=== PATIENT | male | born 1950 | race Hispanic/Latino ===

== ENCOUNTER 2017-06-05 06:00 | Day surgery (SDC) | payer OTHER, MEDICARE ==
[2017-06-02 11:30] VITALS: BP 151/81
[2017-06-02 11:54] LABS: BASOPHILS % (AUTO) 1.4 % (0.0-5.0); EOSINOPHILS % (AUTO) 2.7 % (0.0-8.0); HEMATOCRIT 41.3 % (42-54); LYMPHOCYTES % (AUTO) 23.8 % (21.0-51.0); MEAN CORPUSCULAR HEMOGLOBIN 31.8 pg (27.0-33.0); MEAN CORPUSCULAR HGB CONC 33.9 g/dL (32.0-36.0); MEAN CORPUSCULAR VOLUME 93.7 fL (79-99); MONOCYTES % (AUTO) 9.2 % (3.0-13.0); NEUTROPHILS % (AUTO) 62.9 % (40.0-77.0); PLATELET COUNT (AUTO) 210 K/uL (130-400); RED BLOOD CELL COUNT(AUTO) 4.41 MIL/uL (4.50-6.20); RED CELL DISTRIBUTION WIDTH 14.6 % (11.0-15.5); WHITE BLOOD COUNT (AUTO) 4.1 K/uL (4.8-10.8)
[2017-06-02 11:56] LABS: APPEARANCE,URINE Clear (CLEAR); BILIRUBIN,URINE Small (NEGATIVE); COLOR,URINE Dark Yellow (YELLOW); GLUCOSE, URINE (UA) TRACE mg/dL (NEGATIVE); KETONES,URINE Negative (NEGATIVE); LEUKOCYTE ESTERASE ,URINE Trace (NEGATIVE); NITRATE,URINE Negative (NEGATIVE); OCCULT BLOOD,URINE Negative (NEGATIVE); PROTEIN,URINE Negative (NEGATIVE)
[2017-06-02 12:12] LABS: CREATININE 0.9 mg/dL (0.5-1.5); POTASSIUM 3.6 mmol/L (3.5-5.1)
[2017-06-02 12:13] LABS: BACTERIA,URINE Few /HPF (None Seen); RBC,URINE 0-1 /HPF (0-1); SQUAMOUS EPITHELIAL CELL,UR Rare /LPF (0-2); WBC,URINE 0-1 /HPF (0-1)
[2017-06-05] VITALS (10 sets, daily range): BP systolic 117–142; BP diastolic 76–88
[~2017-06-05] VITALS: Ht 166.4 cm; Wt 69.4 kg
[~2017-06-05 06:00] MED LIST: ASPI-1181 PO; DOCU100C33 PO; LISI2.5T2 PO; METF500T6 PO; PRAV10TA39 PO
[2017-06-05] MEDS ORDERED: SODIUM CHLORIDE 0.9% 1000ML 1,000 ML IV ONE (07:22)
[2017-06-05] MEDS ORDERED: WATER FOR INJECTION,STERILE 20 ML VIAL ONE (07:22)
[2017-06-05] MEDS ORDERED: CEFTRIAXONE SODIUM 1 GM IVP ONE (08:00)
[2017-06-05] MEDS ORDERED: MIDAZOLAM HCL 1 MG/ML 2ML VIAL ONE (08:03)
[2017-06-05] MEDS ORDERED: FENTANYL CITRATE PF 50 MCG/1 ML 2ML VIAL ONE (08:03)
[2017-07-25] MEDS ORDERED: URSO300C4 PO (12:21)
== END 2017-06-05 09:55 | disposition home or self-care (01) ==
LOC: DAH 06:00
PROVIDERS: ATTEND Urology
DX: N40.0 Benign prostatic hyperplasia without lower urinary tract symptoms (principal); E11.9 Type 2 diabetes mellitus without complications; E78.5 Hyperlipidemia, unspecified
CPT/HCPCS: 36415; 55700; 76942; 80048; 81001; 82948 ×2; 85025; 87088; 93005; A4215; A4510; J0696; J2250; J3010; J7030

== ENCOUNTER 2017-06-30 15:12 | Inpatient (IN) | payer OTHER, MEDICARE ==
[~2017-06-30] VITALS: Ht 154.9 cm; Wt 69.4 kg
[~2017-06-30 15:12] MED LIST changes: -NAPR-1023 PO; -RANI150T7 PO; -URSO300C4 PO
[2017-06-30] MEDS ORDERED: SODIUM CHLORIDE 0.9% 1000ML 1,000 ML IV ONE ×3 (16:06→18:35)
[2017-06-30] MEDS ORDERED: MEROPENEM 1 GM VIAL ONE (16:06)
[2017-06-30 16:08] LABS: BASOPHILS % (AUTO) 0.2 % (0.0-5.0); EOSINOPHILS % (AUTO) 0.1 % (0.0-8.0); MEAN CORPUSCULAR HEMOGLOBIN 31.9 pg (27.0-33.0); MEAN CORPUSCULAR HGB CONC 34.4 g/dL (32.0-36.0); MEAN CORPUSCULAR VOLUME 92.6 fL (79-99); MONOCYTES % (AUTO) 6.9 % (3.0-13.0); NEUTROPHILS % (AUTO) 90.8 % (40.0-77.0); PLATELET COUNT (AUTO) 187 K/uL (130-400); RED CELL DISTRIBUTION WIDTH 14.4 % (11.0-15.5); WHITE BLOOD COUNT (AUTO) 13.6 K/uL (4.8-10.8)
[2017-06-30 16:18] LABS: INR 1.07 (0.85-1.15); PARTIAL THROMBOPLASTIN TIME 26.8 SEC (26.3-35.5); PROTHROMBIN TIME 11.2 SEC (9.6-11.6)
[2017-06-30 16:23] LABS: CARBON DIOXIDE 25 mmol/L (21-32); CHLORIDE 98 mmol/L (101-111); CREATININE 1.2 mg/dL (0.5-1.5); GLOMERULAR FILTR. RATE CALC 64 mL/min (>60); GLUCOSE,RANDOM 161 mg/dL (70-105); POTASSIUM 3.4 mmol/L (3.5-5.1); SODIUM SERUM 133 mmol/L (136-145); UREA NITROGEN, BLOOD 29 mg/dL (7-18)
[2017-06-30 16:31] LABS: APPEARANCE,URINE Cloudy (CLEAR); BILIRUBIN,URINE Large (NEGATIVE); GLUCOSE, URINE (UA) TRACE mg/dL (NEGATIVE); KETONES,URINE Negative (NEGATIVE); LEUKOCYTE ESTERASE ,URINE Moderate (NEGATIVE); NITRATE,URINE Positive (NEGATIVE); OCCULT BLOOD,URINE Negative (NEGATIVE); PROTEIN,URINE POS 1+ (NEGATIVE)
[2017-06-30 16:36] LABS: COLOR,URINE AMBER (YELLOW)
[2017-06-30 16:46] LABS: ALANINE AMINOTRANSFERASE 151 U/L (12-78); ALBUMIN 2.3 g/dL (3.5-5.0); ASPARTATE AMINOTRANSFERASE 108 U/L (10-37); CREATINE KINASE MB < 0.5 ng/mL (0.5-3.6); CREATINE KINASE, TOTAL 27 U/L (21-232); MYOGLOBIN 46 ng/mL (10-92); TOTAL PROTEIN, SERUM 6.7 g/dL (6.0-8.3)
[2017-06-30 16:49] LABS: BACTERIA,URINE Rare /HPF (None Seen); RBC,URINE None Seen /HPF (0-1); TRANSITIONAL EPI CELLS,URINE Few /LPF (None Seen)
[2017-06-30 16:51] LABS: TROPONIN I 1.15 ng/mL (0.00-0.06)
[2017-06-30] MEDS ORDERED: FAMOTIDINE/PF 20 MG/2 ML VIAL IV ONE (18:08)
[2017-06-30] MEDS ORDERED: LEVOFLOXACIN 500 MG/D5W 100 ML 100 ML ONE (18:08)
[2017-06-30] MEDS ORDERED: METRONIDAZOLE 500MG/100ML BAG 100 ML ONE (19:53)
[2017-06-30 21:31] VITALS: BP 111/78
[2017-06-30] MEDS ORDERED: ONDANSETRON HCL 4 MG/2 ML VIAL IVP PRN (22:00)
[2017-06-30] MEDS ORDERED: MORPHINE SULFATE 2 MG/ML 1ML SYG IVP PRN (22:00)
[2017-06-30] MEDS ORDERED: NAPR-1023 PO (22:15)
[2017-06-30] MEDS ORDERED: RANI150T7 PO (22:15)
[2017-06-30 22:25] LABS: CREATINE KINASE MB 0.5 ng/mL (0.5-3.6)
[2017-06-30 22:30] LABS: TROPONIN I 0.74 ng/mL (0.00-0.06)
[2017-06-30 23:39] VITALS: BP 110/65
[2017-07-01] VITALS (26 sets, daily range): BP systolic 100–130; BP diastolic 59–77
[2017-07-01] MEDS: METRONIDAZOLE 500MG/100ML BAG 100 ML IV SCH ×4 (04:40→21:02)
[2017-07-01 05:22] LABS: HEMATOCRIT 32.8 % (42-54); MEAN CORPUSCULAR HEMOGLOBIN 32.5 pg (27.0-33.0); MEAN CORPUSCULAR HGB CONC 35.2 g/dL (32.0-36.0); MEAN CORPUSCULAR VOLUME 92.2 fL (79-99); PLATELET COUNT (AUTO) 182 K/uL (130-400); RED BLOOD CELL COUNT(AUTO) 3.56 MIL/uL (4.50-6.20); RED CELL DISTRIBUTION WIDTH 14.4 % (11.0-15.5); WHITE BLOOD COUNT (AUTO) 9.5 K/uL (4.8-10.8)
[2017-07-01 05:34] LABS: ALBUMIN 1.7 g/dL (3.5-5.0); BILIRUBIN,TOTAL 6.7 mg/dL (0.2-1.0); CREATINE KINASE MB 0.5 ng/mL (0.5-3.6); POTASSIUM 3.6 mmol/L (3.5-5.1); TOTAL PROTEIN, SERUM 5.4 g/dL (6.0-8.3); TROPONIN I 0.56 ng/mL (0.00-0.06)
[2017-07-01 05:50] LABS: BAND NEUTROPHILS % (MANUAL) 3 % (0-2); LYMPHOCYTES % (MANUAL) 14 % (22-44); MONOCYTES % (MANUAL) 7 % (2-9); SEGMENTED NEUTROPHILS % 76 % (40-70)
[2017-07-01 05:51] LABS: MAN.DIFF COMMENT-IMPRESSION MANUAL DIFFERENTIAL; PLATELET MORPHOLOGY COMMENT ADEQUATE
[2017-07-01] MEDS ORDERED: ISOVUE-370 50ML VIAL IV ONE (09:44)
[2017-07-01] MEDS: FAMOTIDINE/PF 20 MG/2 ML VIAL IV SCH (10:10)
[2017-07-01] MEDS ORDERED: SODIUM CHLORIDE 0.9% 1000ML 1,000 ML IV ONE (10:13)
[2017-07-01] MEDS ORDERED: MIDAZOLAM HCL 1 MG/ML 2ML VIAL ONE (10:16)
[2017-07-01] MEDS ORDERED: PROPOFOL 1000 MG/100 ML 100 ML IV ONE (10:16)
[2017-07-01] MEDS ORDERED: FENTANYL CITRATE PF 50 MCG/1 ML 2ML VIAL ONE (10:16)
[2017-07-01] MEDS ORDERED: INDOMETHACIN 50 MG SUPP.RECT RC SCH (11:15)
[2017-07-01] MEDS ORDERED: GLUCAGON 1MG KIT 1 MG ML ONE (11:19)
[2017-07-01] MEDS: LISINOPRIL 2.5 MG TABLET PO SCH (13:44)
[2017-07-01] MEDS ORDERED: LEVOFLOXACIN 500 MG/D5W 100 ML 100 ML IV SCH (18:30)
[2017-07-01] MEDS: ASPIRIN 81 MG EC TAB PO SCH (21:01)
[2017-07-01] MEDS: URSODIOL 300 MG CAPSULE PO SCH (21:01)
[2017-07-01] MEDS ORDERED: SODIUM CHLORIDE 0.9% 250 ML IV ONE (21:05)
[2017-07-02 03:42] VITALS: BP 118/73
[2017-07-02 04:58] LABS: HEMATOCRIT 34.1 % (42-54); MEAN CORPUSCULAR HEMOGLOBIN 32.1 pg (27.0-33.0); MEAN CORPUSCULAR HGB CONC 34.6 g/dL (32.0-36.0); MEAN CORPUSCULAR VOLUME 92.7 fL (79-99); PLATELET COUNT (AUTO) 232 K/uL (130-400); RED BLOOD CELL COUNT(AUTO) 3.68 MIL/uL (4.50-6.20); RED CELL DISTRIBUTION WIDTH 14.3 % (11.0-15.5); WHITE BLOOD COUNT (AUTO) 10.8 K/uL (4.8-10.8)
[2017-07-02 05:20] LABS: ALBUMIN 1.7 g/dL (3.5-5.0); BILIRUBIN,DIRECT 5.1 mg/dL (0.0-0.3); BILIRUBIN,TOTAL 6.3 mg/dL (0.2-1.0); TOTAL PROTEIN, SERUM 5.7 g/dL (6.0-8.3)
[2017-07-02] MEDS: METRONIDAZOLE 500MG/100ML BAG 100 ML IV SCH ×3 (06:14→21:45)
[2017-07-02 07:34] VITALS: BP 122/75
[2017-07-02] MEDS: FAMOTIDINE/PF 20 MG/2 ML VIAL IV SCH (08:29)
[2017-07-02] MEDS: DOCUSATE SODIUM 100 MG CAP PO SCH (08:30)
[2017-07-02] MEDS: LISINOPRIL 2.5 MG TABLET PO SCH (08:30)
[2017-07-02] MEDS: URSODIOL 300 MG CAPSULE PO SCH ×2 (11:07→21:45)
[2017-07-02 11:23] VITALS: BP 136/87
[2017-07-02] MEDS ORDERED: CEFTRIAXONE 1GM/D5W 50ML 50 ML IV SCH (13:00)
[2017-07-02] MEDS: CEFTRIAXONE SODIUM 1 GM IVP SCH (16:09)
[2017-07-02 16:10] VITALS: BP 126/74
[2017-07-02 18:59] VITALS: BP 134/78
[2017-07-02] MEDS: ASPIRIN 81 MG EC TAB PO SCH (21:45)
[2017-07-02 23:02] VITALS: BP 122/73
[2017-07-03 03:17] VITALS: BP 132/78
[2017-07-03 04:57] LABS: HEMATOCRIT 33.4 % (42-54); MEAN CORPUSCULAR HEMOGLOBIN 32.8 pg (27.0-33.0); MEAN CORPUSCULAR HGB CONC 35.5 g/dL (32.0-36.0); MEAN CORPUSCULAR VOLUME 92.3 fL (79-99); PLATELET COUNT (AUTO) 268 K/uL (130-400); RED BLOOD CELL COUNT(AUTO) 3.61 MIL/uL (4.50-6.20); RED CELL DISTRIBUTION WIDTH 14.1 % (11.0-15.5); WHITE BLOOD COUNT (AUTO) 10.5 K/uL (4.8-10.8)
[2017-07-03 05:06] LABS: POTASSIUM 3.8 mmol/L (3.5-5.1)
[2017-07-03] MEDS: METRONIDAZOLE 500MG/100ML BAG 100 ML IV SCH ×3 (06:52→21:51)
[2017-07-03 07:32] VITALS: BP 116/73
[2017-07-03] MEDS: DOCUSATE SODIUM 100 MG CAP PO SCH (08:33)
[2017-07-03] MEDS: FAMOTIDINE/PF 20 MG/2 ML VIAL IV SCH (08:34)
[2017-07-03] MEDS: LISINOPRIL 2.5 MG TABLET PO SCH (08:34)
[2017-07-03 11:17] VITALS: BP 166/90
[2017-07-03] MEDS: URSODIOL 300 MG CAPSULE PO SCH ×2 (12:23→21:50)
[2017-07-03] MEDS: CEFTRIAXONE SODIUM 1 GM IVP SCH (12:27)
[2017-07-03 12:43] LABS: ALBUMIN 1.6 g/dL (3.5-5.0); BILIRUBIN,DIRECT 4.3 mg/dL (0.0-0.3); BILIRUBIN,TOTAL 5.6 mg/dL (0.2-1.0); TOTAL PROTEIN, SERUM 5.9 g/dL (6.0-8.3)
[2017-07-03 16:10] VITALS: BP 112/64
[2017-07-03 19:48] VITALS: BP 111/65
[2017-07-03] MEDS: ASPIRIN 81 MG EC TAB PO SCH (21:50)
[2017-07-03] MEDS: METOPROLOL TARTRATE 25 MG TAB PO SCH (21:50)
[2017-07-03 23:27] VITALS: BP 114/71
[2017-07-04 03:18] VITALS: BP 129/76
[2017-07-04 04:11] LABS: HEMATOCRIT 31.9 % (42-54); MEAN CORPUSCULAR HEMOGLOBIN 32.1 pg (27.0-33.0); MEAN CORPUSCULAR HGB CONC 34.8 g/dL (32.0-36.0); MEAN CORPUSCULAR VOLUME 92.1 fL (79-99); PLATELET COUNT (AUTO) 300 K/uL (130-400); RED BLOOD CELL COUNT(AUTO) 3.46 MIL/uL (4.50-6.20); RED CELL DISTRIBUTION WIDTH 14.3 % (11.0-15.5); WHITE BLOOD COUNT (AUTO) 10.2 K/uL (4.8-10.8)
[2017-07-04 04:23] LABS: ALANINE AMINOTRANSFERASE 82 U/L (12-78); ASPARTATE AMINOTRANSFERASE 66 U/L (10-37); BILIRUBIN,DIRECT < 0.1 mg/dL (0.0-0.3); BILIRUBIN,TOTAL 4.9 mg/dL (0.2-1.0); CARBON DIOXIDE 28 mmol/L (21-32); CHLORIDE 103 mmol/L (101-111); CREATINE KINASE MB < 0.5 ng/mL (0.5-3.6); CREATINE KINASE, TOTAL 11 U/L (21-232); CREATININE 1.1 mg/dL (0.5-1.5); GLOMERULAR FILTR. RATE CALC 71 mL/min (>60); POTASSIUM 3.6 mmol/L (3.5-5.1); SODIUM SERUM 137 mmol/L (136-145)
[2017-07-04 04:34] LABS: ALBUMIN 1.6 g/dL (3.5-5.0); GLUCOSE,RANDOM 132 mg/dL (70-105); UREA NITROGEN, BLOOD 19 mg/dL (7-18)
[2017-07-04] MEDS: METRONIDAZOLE 500MG/100ML BAG 100 ML IV SCH ×2 (06:46→13:45)
[2017-07-04 07:00] VITALS: BP 120/70
[2017-07-04] MEDS: LISINOPRIL 2.5 MG TABLET PO SCH (08:35)
[2017-07-04] MEDS: METOPROLOL TARTRATE 25 MG TAB PO SCH (08:36)
[2017-07-04] MEDS: FAMOTIDINE/PF 20 MG/2 ML VIAL IV SCH (08:36)
[2017-07-04] MEDS: DOCUSATE SODIUM 100 MG CAP PO SCH (08:36)
[2017-07-04] MEDS: URSODIOL 300 MG CAPSULE PO SCH (09:00)
[2017-07-04 11:00] VITALS: BP 125/71
[2017-07-04] MEDS: CEFTRIAXONE SODIUM 1 GM IVP SCH (13:25)
[2017-07-25] MEDS ORDERED: URSO300C4 PO (12:21)
== END 2017-07-04 16:00 | disposition home or self-care (01) | DRG 871 ==
LOC: EDH 15:12 → EDHIP 17:25 → 2DH 20:53
PROVIDERS: ADMIT Internal Medicine; ATTEND Internal Medicine
PROC: 0FC98ZZ Extirpation of Matter from Common Bile Duct, Via Natural or Artificial Opening Endoscopic (ICD-10-PCS; principal; 2017-07-01)
PROC: 0F998ZZ Drainage of Common Bile Duct, Via Natural or Artificial Opening Endoscopic (ICD-10-PCS; 2017-07-01)
PROC: 0F798DZ Dilation of Common Bile Duct with Intraluminal Device, Via Natural or Artificial Opening Endoscopic (ICD-10-PCS; 2017-07-01)
PROC: 0F7D8DZ Dilation of Pancreatic Duct with Intraluminal Device, Via Natural or Artificial Opening Endoscopic (ICD-10-PCS; 2017-07-01)
DX: A41.51 Sepsis due to Escherichia coli [E. coli] (principal); I21.4 Non-ST elevation (NSTEMI) myocardial infarction; E44.1 Mild protein-calorie malnutrition; K80.30 Calculus of bile duct with cholangitis, unspecified, without obstruction; R17 Unspecified jaundice; N39.0 Urinary tract infection, site not specified; E11.9 Type 2 diabetes mellitus without complications; M79.1 Myalgia; R74.0 Nonspecific elevation of levels of transaminase and lactic acid dehydrogenase [LDH]; Z90.49 Acquired absence of other specified parts of digestive tract; Z82.49 Family history of ischemic heart disease and other diseases of the circulatory system; Z68.28 Body mass index [BMI] 28.0-28.9, adult
CPT/HCPCS: 36415; 71045; 74181; 74330; 80048; 80053; 80076; 81001; 82550; 82553; 82948; 83605; 83690; 83874; 84484; 85025; 85027; 85610; 85730; 87040; 87088; 87186; 87804; 93005; 93306; A4218; C1769; C1773; C2625; J0696; J1610; J1956; J2185; J2250; J2704; J3010; J3490; J7030; Q9967

== ENCOUNTER → 2017-06-30 | Outpatient (CLI) | payer OTHER, MEDICARE ==
[~2017-06-30] MED LIST changes: +NAPR-1023 PO; +RANI150T7 PO; +URSO300C4 PO
== END ==
LOC: RAH 08:34
PROVIDERS: ATTEND Internal Medicine Gastroenterology
DX: K86.2 Cyst of pancreas (principal); J90 Pleural effusion, not elsewhere classified; R18.8 Other ascites; K83.1 Obstruction of bile duct; R74.8 Abnormal levels of other serum enzymes
CPT/HCPCS: 74181

== ENCOUNTER 2017-08-11 08:16 | Day surgery (SDC) | payer OTHER, MEDICARE ==
[~2017-08-11] VITALS: Ht 165.1 cm; Wt 66.4 kg
[~2017-08-11 08:16] MED LIST changes: -DOCU100C33 PO; -LISI2.5T2 PO; +SODIUM CHLORIDE 0.9% 1000ML 1,000 ML IV ONE; +URSO300C4 PO
[2017-08-11 08:19] VITALS: BP 138/75
[2017-08-11] MEDS ORDERED: ISOVUE-370 50ML VIAL IV ONE (08:37)
[2017-08-11] MEDS ORDERED: PROPOFOL 1000 MG/100 ML 100 ML IV ONE (09:24)
[2017-08-11] MEDS ORDERED: FENTANYL CITRATE PF 50 MCG/1 ML 2ML VIAL ONE (09:24)
[2017-08-11] MEDS ORDERED: MIDAZOLAM HCL 1 MG/ML 2ML VIAL ONE (09:24)
[2017-08-11] MEDS ORDERED: INDOMETHACIN 50 MG SUPP.RECT RC SCH (09:30)
[2017-08-11 09:56] VITALS: BP 95/52
== END 2017-08-11 11:00 ==
LOC: DAH 08:16
PROVIDERS: ATTEND Internal Medicine Gastroenterology
DX: T85.590A Other mechanical complication of bile duct prosthesis, initial encounter (principal); K80.50 Calculus of bile duct without cholangitis or cholecystitis without obstruction; E11.9 Type 2 diabetes mellitus without complications; E78.5 Hyperlipidemia, unspecified; Z90.49 Acquired absence of other specified parts of digestive tract; Z79.84 Long term (current) use of oral hypoglycemic drugs; Z79.899 Other long term (current) drug therapy
CPT/HCPCS: 43262; 43275; 74330; 82948 ×2; A4606; C1769; C1773; J2250; J2704; J3010; J7030 ×2; Q9967

== ENCOUNTER 2018-06-01 15:40 | Inpatient (IN) | payer OTHER, MEDICARE | END 2018-06-05 15:03 | disposition home or self-care (01) | LOC: EDH 15:40 → EDHIP 18:48 → 4BH 19:46 | DX: K83.1 Obstruction of bile duct (principal); I10 Essential (primary) hypertension; E78.5 Hyperlipidemia, unspecified; E11.9 Type 2 diabetes mellitus without complications ==

== ENCOUNTER 2018-07-15 08:42 | Day surgery (SDC) | payer OTHER, MEDICARE ==
[2018-07-15] VITALS (16 sets, daily range): BP systolic 102–143; BP diastolic 58–91
[~2018-07-15] VITALS: Ht 167.6 cm; Wt 66.7 kg
[~2018-07-15 08:42] MED LIST changes: +AMOX1TAB15 PO; +LISI-613 PO; +METF-444 PO; -METF500T6 PO; +RANI150T7 PO
[2018-07-15] MEDS ORDERED: DIATR MEGLU/DIATRIZOATE SODIUM 30 ML BOTTLE ONE (10:29)
[2018-07-15] MEDS ORDERED: IOHEXOL-350 50ML VIAL IV ONE (11:06)
[2018-07-15] MEDS ORDERED: INDOMETHACIN 50 MG SUPP.RECT RC SCH (11:30)
[2018-07-15] MEDS ORDERED: PROPOFOL 10 MG/ML 20ML VIAL IV ONE ×2 (11:33→11:50)
[2018-07-15] MEDS ORDERED: GLYCOPYRROLATE 0.2 MG/ML 5 ML VIAL ONE (12:00)
== END 2018-07-15 14:01 | disposition home or self-care (01) ==
LOC: ENDO 08:42 → DAH 08:42 → ENDO 14:01
PROVIDERS: ATTEND Internal Medicine Gastroenterology
DX: K80.51 Calculus of bile duct without cholangitis or cholecystitis with obstruction (principal); E78.5 Hyperlipidemia, unspecified; I10 Essential (primary) hypertension; E11.9 Type 2 diabetes mellitus without complications; Z86.010 Personal history of colon polyps; Z98.890 Other specified postprocedural states; Z79.899 Other long term (current) drug therapy; Z79.84 Long term (current) use of oral hypoglycemic drugs; Z79.01 Long term (current) use of anticoagulants
CPT/HCPCS: 43261; 43265; 43273; 43276; 74330; 82948 ×2; 88104; 88305; 93005; A4606; C1769; C2625; J2704 ×2; J3490; J7030; Q9967; 43264; 43274; 43275; 43277; G9654; Q9963

== ENCOUNTER 2018-10-09 10:04 | Day surgery (SDC) | payer OTHER, MEDICARE ==
[~2018-10-09] VITALS: Ht 152.4 cm; Wt 68.9 kg
[2018-10-09] VITALS (15 sets, daily range): BP systolic 115–141; BP diastolic 70–88
[~2018-10-09 10:04] MED LIST changes: -AMOX1TAB15 PO; -SODIUM CHLORIDE 0.9% 1000ML 1,000 ML IV ONE; -URSO300C4 PO
[2018-10-09] MEDS ORDERED: IOHEXOL-350 50ML VIAL IV ONE (10:57)
[2018-10-09] MEDS ORDERED: INDOMETHACIN 50 MG SUPP.RECT RC SCH (11:15)
[2018-10-09] MEDS ORDERED: FENTANYL CITRATE PF 50 MCG/1 ML 2ML VIAL ONE (11:44)
[2018-10-09] MEDS ORDERED: PROPOFOL 10 MG/ML 20ML VIAL IV ONE (11:45)
[2018-10-09] MEDS ORDERED: MIDAZOLAM HCL 1 MG/ML 2ML VIAL ONE (11:45)
[2018-10-09] MEDS ORDERED: SUCCINYLCHOLINE 200MG/10ML SYR ONE (11:46)
[2018-10-09] MEDS ORDERED: ROCURONIUM 10MG/1ML SYR 10 MG/ML ML ONE (11:47)
[2018-10-09] MEDS ORDERED: ONDANSETRON HCL 4 MG/2 ML VIAL ONE (11:47)
[2018-10-09] MEDS ORDERED: EPHEDRINE SULFATE 50 MG/ML AMPULE ONE (12:14)
== END 2018-10-09 14:50 | disposition home or self-care (01) ==
LOC: DAH 10:04 → ENDO 10:04
PROVIDERS: ATTEND Internal Medicine
DX: K80.30 Calculus of bile duct with cholangitis, unspecified, without obstruction (principal); E78.5 Hyperlipidemia, unspecified; I10 Essential (primary) hypertension; E11.9 Type 2 diabetes mellitus without complications; Z86.010 Personal history of colon polyps; Z98.890 Other specified postprocedural states; Z79.899 Other long term (current) drug therapy; Z79.82 Long term (current) use of aspirin; Z79.84 Long term (current) use of oral hypoglycemic drugs; Z87.01 Personal history of pneumonia (recurrent); Z90.49 Acquired absence of other specified parts of digestive tract; Z82.49 Family history of ischemic heart disease and other diseases of the circulatory system; Z83.3 Family history of diabetes mellitus
CPT/HCPCS: 43264; 43275; 82948 ×2; A4606; C1769; C1773; J0330; J2250; J2405; J2704; J3010; J3490; Q9967; 74330

== ENCOUNTER 2018-10-10 08:24 | Emergency (ER) | payer OTHER, MEDICARE | END 2018-10-10 09:43 | disposition home or self-care (01) | LOC: EDH 08:24 | DX: R33.9 Retention of urine, unspecified (principal); I10 Essential (primary) hypertension; E11.9 Type 2 diabetes mellitus without complications; E78.5 Hyperlipidemia, unspecified; Z90.49 Acquired absence of other specified parts of digestive tract | CPT/HCPCS: 51702 ==

== ENCOUNTER → 2020-03-22 | Outpatient (CLI) | payer OTHER, MEDICARE ==
[~2020-03-22] MED LIST changes: -ASPI-1181 PO; +ASPI-1443 PO; +FINA5TAB41 PO; -RANI150T7 PO; +TAMS-1 PO
== END | disposition home or self-care (01) ==
LOC: RAH 07:33
PROVIDERS: ATTEND Internal Medicine Gastroenterology
DX: N28.1 Cyst of kidney, acquired (principal); K83.1 Obstruction of bile duct
CPT/HCPCS: 74181

== ENCOUNTER 2021-03-01 09:20 | Emergency (ER) | payer OTHER, MEDICARE ==
[~2021-03-01] VITALS: Ht 162.6 cm; Wt 62.1 kg
[~2021-03-01 09:20] MED LIST changes: -LISI-613 PO; +LISI20TA24 PO
[2021-03-01 09:53] LABS: BASOPHILS % (AUTO) 0.3 % (0.0-5.0); EOSINOPHILS % (AUTO) 0.4 % (0.0-8.0); HEMATOCRIT 33.4 % (42-54); LYMPHOCYTES % (AUTO) 7.5 % (21.0-51.0); MEAN CORPUSCULAR HEMOGLOBIN 31.9 pg (27.0-33.0); MEAN CORPUSCULAR HGB CONC 34.4 g/dL (32.0-36.0); MEAN CORPUSCULAR VOLUME 92.5 fL (79-99); MONOCYTES % (AUTO) 5.8 % (3.0-13.0); NEUTROPHILS % (AUTO) 85.5 % (40.0-77.0); PLATELET COUNT (AUTO) 187 K/uL (130-400); RED BLOOD CELL COUNT(AUTO) 3.61 MIL/uL (4.50-6.20); RED CELL DISTRIBUTION WIDTH 13.2 % (11.0-15.5); WHITE BLOOD COUNT (AUTO) 12.7 K/uL (4.8-10.8)
[2021-03-01 10:11] LABS: ALBUMIN 2.3 g/dL (3.5-5.0); BILIRUBIN,DIRECT 1.4 mg/dL (0.0-0.3); BILIRUBIN,TOTAL 3.4 mg/dL (0.2-1.0); CREATININE 0.9 mg/dL (0.5-1.5); TOTAL PROTEIN, SERUM 7.6 g/dL (6.0-8.3)
[2021-03-01] MEDS ORDERED: POTASSIUM BICARB/CIT AC 25 MEQ TABLET.EFF PO SCH (11:00)
[2021-03-01 16:20] VITALS: BP 112/61
[2021-03-01] MEDS ORDERED: PROC5TAB54 PO (16:49)
[2021-03-01] MEDS ORDERED: METR500T PO (17:12)
[2021-03-01] MEDS ORDERED: LEVO750T46 PO (17:12)
[2021-03-01] MEDS ORDERED: LEVOFLOXACIN 500 MG TABLET PO SCH (17:30)
== END 2021-03-01 17:50 | disposition home or self-care (01) ==
LOC: EDH 09:20
DX: K52.9 Noninfective gastroenteritis and colitis, unspecified (principal); B34.9 Viral infection, unspecified; R74.8 Abnormal levels of other serum enzymes; M79.10 Myalgia, unspecified site; R53.81 Other malaise; E11.9 Type 2 diabetes mellitus without complications; I10 Essential (primary) hypertension; Z79.82 Long term (current) use of aspirin; Z79.84 Long term (current) use of oral hypoglycemic drugs; Z79.899 Other long term (current) drug therapy; Z90.49 Acquired absence of other specified parts of digestive tract
CPT/HCPCS: 36415; 71250; 74176; 80053; 82150; 82248; 83690; 84484; 85025

== ENCOUNTER 2021-03-12 17:21 | Emergency (ER) | payer OTHER, MEDICARE ==
[~2021-03-12] VITALS: Ht 165.1 cm; Wt 65.8 kg
[~2021-03-12 17:21] MED LIST changes: +LEVO750T46 PO; +METR500T PO; +PROC5TAB54 PO
[2021-03-12 17:22] VITALS: BP 125/75
[2021-03-12] MEDS ORDERED: ACET-2247 PO (18:02)
[2021-03-12] MEDS: ACETAMINOPHEN 325 MG TAB ONE (18:04)
[2021-03-12] MEDS: ACETAMINOPHEN 325 MG TAB PO ONE (18:04)
== END 2021-03-12 18:07 | disposition home or self-care (01) ==
LOC: EDH 17:21
DX: S00.01XA Abrasion of scalp, initial encounter (principal); E11.9 Type 2 diabetes mellitus without complications; E78.00 Pure hypercholesterolemia, unspecified; I10 Essential (primary) hypertension; Z79.82 Long term (current) use of aspirin; Z79.84 Long term (current) use of oral hypoglycemic drugs; Z79.899 Other long term (current) drug therapy; X58.XXXA Exposure to other specified factors, initial encounter; Y93.89 Activity, other specified; Y92.89 Other specified places as the place of occurrence of the external cause; Y99.8 Other external cause status
CPT/HCPCS: 99282

== ENCOUNTER 2021-12-30 16:52 | Emergency (ER) | payer OTHER, MEDICARE ==
[~2021-12-30] VITALS: Ht 160 cm; Wt 68.9 kg
[~2021-12-30 16:52] MED LIST changes: +ACET-2247 PO; -LEVO750T46 PO; +LEVO750T68 PO
[2021-12-30 17:33] VITALS: BP 128/78
== END 2021-12-30 17:45 | disposition home or self-care (01) ==
LOC: EDH 16:52
DX: L76.22 Postprocedural hemorrhage of skin and subcutaneous tissue following other procedure (principal); R05.9 Cough, unspecified; E11.9 Type 2 diabetes mellitus without complications; E78.00 Pure hypercholesterolemia, unspecified; I10 Essential (primary) hypertension; Z79.82 Long term (current) use of aspirin; Z79.84 Long term (current) use of oral hypoglycemic drugs
CPT/HCPCS: 99281

== ENCOUNTER → 2022-06-27 | Outpatient (CLI) | payer OTHER, MEDICARE ==
[2022-06-27 11:23] LABS: ALBUMIN 2.8 g/dL (3.5-5.0); CREATININE 0.9 mg/dL (0.5-1.5); POTASSIUM 3.8 mmol/L (3.5-5.1); TOTAL PROTEIN, SERUM 8.7 g/dL (6.0-8.3)
[2022-06-27 11:45] LABS: BASOPHILS % (AUTO) 0.6 % (0.0-5.0); EOSINOPHILS % (AUTO) 3.2 % (0.0-8.0); HEMATOCRIT 39.6 % (42-54); LYMPHOCYTES % (AUTO) 17.9 % (21.0-51.0); MEAN CORPUSCULAR HEMOGLOBIN 32.1 pg (27.0-33.0); MEAN CORPUSCULAR HGB CONC 33.8 g/dL (32.0-36.0); MONOCYTES % (AUTO) 5.5 % (3.0-13.0); NEUTROPHILS % (AUTO) 72.6 % (40.0-77.0); PLATELET COUNT (AUTO) 154 K/uL (130-400); RED BLOOD CELL COUNT(AUTO) 4.17 MIL/uL (4.50-6.20); RED CELL DISTRIBUTION WIDTH 14.3 % (11.0-15.5); WHITE BLOOD COUNT (AUTO) 4.7 K/uL (4.8-10.8)
[2022-06-27 11:58] LABS: INR 1.03 (0.85-1.15); PROTHROMBIN TIME 11.2 SEC (9.6-11.6)
[2022-06-27 14:32] LABS: HEMOGLOBIN A1C 9.3 % (4.0-6.0)
[2022-06-27 22:10] LABS: HEPATITIS B SURFACE ANTIGEN Non-Reactive (Nonreactive); HEPATITIS C ANTIBODY Non-Reactive (Nonreactive)
[2022-06-28 11:13] LABS: HEPATITIS A ANTIBODY TOTAL Positive (Negative)
[2022-06-28 15:14] LABS: ALPHA-1-ANTITRYPSIN 216 mg/dL (101-187)
== END | disposition home or self-care (01) ==
LOC: LAB 09:23
PROVIDERS: ATTEND Family Medicine
DX: I10 Essential (primary) hypertension (principal); E11.51 Type 2 diabetes mellitus with diabetic peripheral angiopathy without gangrene; E78.2 Mixed hyperlipidemia; K83.1 Obstruction of bile duct; K43.9 Ventral hernia without obstruction or gangrene; K76.9 Liver disease, unspecified; R94.5 Abnormal results of liver function studies; R53.1 Weakness; Z79.899 Other long term (current) drug therapy
CPT/HCPCS: 36415; 80053; 80061; 82043; 82103; 82105; 82248; 82306; 82390; 82728; 82784; 83036; 83516; 83540; 85025; 85610; 85730; 86038; 86215; 86235; 86255; 86316; 86701; 86704; 86706; 86708; 87340; 87390; 87520

== ENCOUNTER 2024-05-22 23:54 | Inpatient (IN) | payer OTHER, MEDICARE ==
[~2024-05-22] VITALS: Ht 152.4 cm; Wt 67.0 kg
[2024-05-23] VITALS (18 sets, daily range): BP systolic 108–147; BP diastolic 61–94; PULSE 58–79; RESP 14–27; TEMP 97.8–98.1; O2SAT 97
--- NOTE | 2024-05-23 00:05 | NUR ---
REPORT TO DR SAUNDERS
[2024-05-23 00:23] LABS: APPEARANCE,URINE CLEAR (CLEAR); BILIRUBIN,URINE NEGATIVE (NEGATIVE); COLOR,URINE YELLOW (YELLOW); GLUCOSE, URINE (UA) NEGATIVE (NEGATIVE); KETONES,URINE NEGATIVE (NEGATIVE); LEUKOCYTE ESTERASE ,URINE NEGATIVE Leu/uL (NEGATIVE); NITRATE,URINE NEGATIVE (NEGATIVE); OCCULT BLOOD,URINE NEGATIVE (NEGATIVE); PH,URINE 5.5 (5.0-8.0); PROTEIN,URINE 20 mg/dL (NEGATIVE); UROBILINOGEN,URINE >=8.0 mg/dL (0.2-1.0)
[2024-05-23 00:28] LABS: ADD UA MICROSCOPIC YES
[2024-05-23 00:29] LABS: BACTERIA,URINE RARE /HPF (None Seen); BASOPHILS # (AUTO) 0.03 K/uL (0.00-0.20); BASOPHILS % (AUTO) 0.5 % (0.0-5.0); EOSINOPHILS # (AUTO) 0.06 K/uL (0.00-0.70); IMMATURE GRANULOCYTE ABSOLUTE 0.03 K/uL (0-1); LYMPHOCYTES # (AUTO) 1.1 K/uL (1.0-4.8); LYMPHOCYTES % (AUTO) 18.2 % (21.0-51.0); MEAN CORPUSCULAR HEMOGLOBIN 31.5 pg (27.0-33.0); MEAN CORPUSCULAR HGB CONC 33.3 g/dL (32.0-36.0); MEAN CORPUSCULAR VOLUME 94.6 fL (79-99); MONOCYTES # (AUTO) 0.6 K/uL (0.1-1.0); MUCUS,URINE MANY LPF (None Seen); NEUTROPHILS # (AUTO) 4.3 K/uL (1.8-7.7); NEUTROPHILS % (AUTO) 69.8 % (40.0-77.0); PLATELET COUNT (AUTO) 202 K/uL (130-400); RED BLOOD CELL COUNT(AUTO) 3.49 MIL/uL (4.50-6.20); RED CELL DISTRIBUTION WIDTH 14.7 % (11.0-15.5); SQUAMOUS EPITHELIAL CELL,UR RARE /HPF (0-2); WHITE BLOOD COUNT (AUTO) 6.1 K/uL (4.8-10.8)
[2024-05-23 00:34] LABS: POTASSIUM 3.4 mmol/L (3.5-5.1)
[2024-05-23] MEDS ORDERED: IOHEXOL-350 75 ML VIAL IV ONE (01:06)
--- NOTE | 2024-05-23 03:01 | ERN ---
General Chief Complaint: Wound Check Stated Complaint: WOUND, ABD, LEAKING Time Seen by MD: 00:07 History of Present Illness Initial Comments Mr. Peralta is a very pleasant 74-year-old male history of BPH, essential hypertension, hyperlipidemia, type 2 diabetes and history of abdominal hernia repair 2 years ago. Patient comes in with a a large abdominal mass wound with some leaking from hernia repair site patient does have some skin ulceration and breakdown which has a exposed the hernia sac. Patient is concerned that he is losing weight. Patient was feeling more tired and unable to keep up with his activities of daily living Allergies: Coded Allergies: No Known Drug Allergies (Unverified Allergy, Unknown, 06/02/17) Home Meds Active Scripts Acetaminophen (Tylenol) 325 Mg Tablet, 650 MG PO Q4HPRN, #50 TAB Prov:DOUGLAS GRANT 03/12/21 Metronidazole (Flagyl) 500 Mg Tablet, 1 TAB PO TID for 10 Days, #30 TAB 0 Refills Prov:MARY LAST MD 03/01/21 Levofloxacin (Levaquin 750Mg Tabs) 750 Mg Tablet, 500 MG PO DAILY, #7 TAB Prov:MARY LAST MD 03/01/21 Prochlorperazine Maleate (Compazine) 5 Mg Tab, 5 MG PO TID, #15 TAB Prov:MARY LAST MD 03/01/21 Reported Medications Finasteride (Finasteride) 5 Mg Tablet, 5 MG PO NOON, TAB 02/21/20 Tamsulosin HCl (Flomax) 0.4 Mg Cap.er.24h, 0.4 MG PO NOON, CAPSULE. 02/21/20 Lisinopril (Lisinopril) 20 Mg Tablet, 12.5 MG PO AM, TAB 06/01/18 Pravastatin Sodium (Pravastatin Sodium) 10 Mg Tablet, 10 MG PO HS, TAB 06/02/17 Metformin HCl (Metformin HCl) 500 Mg Tablet, 500 MG PO BID, TAB 06/02/17 Aspirin (Aspirin EC) 81 Mg Tablet., 81 MG PO DAILY, TAB 06/02/17 Past Medical History Past Medical History: Diabetes-Type II, High Cholesterol, Hypertension Medical History Other: PROSTATE Past Surgical History: Other Surgical History Other: BILIARY TUBES , HERNIA REPAIR Family History Family History: HTN Social History Social History: Negative, Lives with family ROS Dictation Constitutional: Negative for fever,chills, and weight loss Eyes: Negative for injury, pain,redness, and discharge ENT: Negative for injury,pain or swelling Cardiovascular: Negative for chest pain, palpitations, and edema Respiratory: Negative for shortness of breath, cough, and wheezing, Abdomen/GI: Positive for abdominal pain and distention Back: Negative for injury and pain : Negative for injury, bleeding and discharge MS/Extremity: Negative for injury and deformity Skin: Negative for rash, and discoloration Neuro: Negative for headache, weakness, numbness, tingling, and seizure Psych: Negative for suicide ideation, homicidal ideation, and hallucinations Physical Exam Physical Exam Dictation General: awake, alert, NAD Head/Face: Normocephalic, atraumatic Eyes: PERRL, EOMI ENT: oral cavity clear, Neck: Trachea midline, Cardiovascular: RRR, normal S1/S2, Respiratory: CTAB, no respiratory distress Abdomen: Large abdominal hernia with skin breakdown, patient does have skin discoloration and foul odor coming from hernia MS/Extremity: Pulses equal, no cyanosis Neuro: COAx4, GCS 15, strength 5/5, CN 2-12 intact Psych: Normal behavior, mood, and affect normal Results Laboratory and Microbiology Lab and Micro Result Laboratory Tests Test 05/23/24 00:07 White Blood Count 6.1 K/uL (4.8-10.8) Red Blood Count 3.49 MIL/uL (4.50-6.20) L Hemoglobin 11.0 g/dL (14.0-18.0) L Hematocrit 33.0 % (42-54) L Mean Corpuscular Volume 94.6 fL (79-99) Mean Corpuscular Hemoglobin 31.5 pg (27.0-33.0) Mean Corpuscular Hemoglobin Concent 33.3 g/dL (32.0-36.0) Red Cell Distribution Width 14.7 % (11.0-15.5) Platelet Count 202 K/uL (130-400) Mean Platelet Volume 10.3 fL (7.5-10.5) Immature Granulocyte % (Auto) 0.5 % (0-1) Neutrophils (%) (Auto) 69.8 % (40.0-77.0) Lymphocytes (%) (Auto) 18.2 % (21.0-51.0) L Monocytes (%) (Auto) 10.0 % (3.0-13.0) Eosinophils (%) (Auto) 1.0 % (0.0-8.0) Basophils (%) (Auto) 0.5 % (0.0-5.0) Neutrophils # (Auto) 4.3 K/uL (1.8-7.7) Lymphocytes # (Auto) 1.1 K/uL (1.0-4.8) Monocytes # (Auto) 0.6 K/uL (0.1-1.0) Eosinophils # (Auto) 0.06 K/uL (0.00-0.70) Basophils # (Auto) 0.03 K/uL (0.00-0.20) Absolute Immature Granulocyte (auto 0.03 K/uL (0-1) Nucleated Red Blood Cells 0.0 % (0.0-0.19) Urine Color YELLOW (YELLOW) Urine Appearance CLEAR (CLEAR) Urine pH 5.5 (5.0-8.0) Urine Specific [place] 1.028 (1.001-1.031) Urine Protein 20 mg/dL (NEGATIVE) H Urine Glucose (UA) NEGATIVE mg/dL (NEGATIVE) Urine Ketones NEGATIVE mg/dL (NEGATIVE) Urine Occult Blood NEGATIVE (NEGATIVE) Urine Nitrate NEGATIVE (NEGATIVE) Urine Bilirubin NEGATIVE mg/dL (NEGATIVE) Urine Urobilinogen >=8.0 mg/dL (0.2-1.0) H Urine Leukocyte Esterase NEGATIVE Liz/uL Urine RBC 2-5 /HPF (0-1) H Urine WBC 2-5 /HPF (0-1) H Urine Squamous Epithelial Cells RARE /HPF (0-2) Urine Bacteria RARE /HPF (None Seen) Sodium Level 135 mmol/L (136-145) L Potassium Level 3.4 mmol/L (3.5-5.1) L Chloride Level 102 mmol/L (101-111) Carbon Dioxide Level 26 mmol/L (21-32) Blood Urea Nitrogen 20 mg/dL (7-18) H Creatinine 1.0 mg/dL (0.5-1.3) Glomerular Filtration Rate Calc 78 mL/min (>90) Random Glucose 134 mg/dL (70-105) H Lactic Acid Level 1.9 mmol/L (0.8-2.5) Total Calcium 7.9 mg/dL (8.5-10.1) L Magnesium Level 2.00 mg/dL (1.80-2.40) Total Creatine Kinase 81 U/L (21-232) # Procalcitonin 0.31 ng/mL (0.05-0.5) MDM Patient will be admitted for worsening skin breakdown in hernia infection. Patient does have concerns for micro perforations within hernia cavity. Did try to call surgery but I did not get a response. Patient will be admitted for further evaluation and care. MDM: Differential diagnosis: Sepsis Rationale: Tests considered and ordered secondary to shared decision making include: labs, ECG and radiology Previous outside records reviewed: Old ER visits. Risk of complication and/or morbidity or mortality of patient management: None Medications-Per medication reconciliation Need for hospitalization: Patient does meet criteria for hospitalization. Need for emergency major/minor surgery: No There are no social concerns with this patient. Prescription drug management Prescriptions will include symptomatic care Patient's prior external medical records from other ER visits were reviewed by me as indicated. Prior testing and results from previous visits were reviewed. Prior tests were taken into account with medical decision making and resource utilization, independent historian/historians were used to obtain complete medical history. I independently interpreted the test that were performed, results were reviewed by me and considered findings on radiology if ordered. Medical management and examination interpretation discussions were had by me with other qualified healthcare professionals as indicated for the patient's care. ED Course Orders Procedure Category Date Status Time Cbc With Differential LAB 05/22/24 Complete 23:56 Basic Metabolic Panel LAB 05/22/24 Complete 23:56 Lactic Acid LAB 05/22/24 Complete 23:56 Blood Cult ALEXX 05/22/24 In Process 23:56 Urinalysis Profile LAB 05/22/24 Complete 23:56 Creatine Kinase, Total LAB 05/22/24 Complete 23:56 Magnesium LAB 05/22/24 Complete 23:56 Procalcitonin LAB 05/23/24 Complete 00:05 Ct Abdomen/Pelvis CT 05/23/24 Taken W/Contrast 00:05 Aerobic Culture ALEXX 05/23/24 In Process 00:08 Anaerobic Culture ALEXX 05/23/24 In Process 00:08 Iohexol (Omnipaque) PHA 05/23/24 Complete 01:06 Zosyn 3.375gm+Ns 50ml PHA 05/23/24 Verified (Zosyn 3.375gm+Ns 03:00 Current Medications Medications (Trade) Dose Ordered Sig/Yuniel Route PRN Reason Start Time Stop Time Status Last Admin Dose Admin Iohexol (Omnipaque) 75 ml STK-MED ONCE IV 05/23/24 01:06 05/23/24 01:11 DC Vital Signs Date Time Temp Pulse Resp B/P (MAP) Pulse Ox O2 Delivery O2 Flow Rate FiO2 05/23/24 01:08 97.9 72 18 110/56 97 Room Air* 0 21 05/22/24 23:55 98.4 72 20 100/56 99 Room Air DX & DISP Disposition: Inpatient Departure Impression: Primary Impression: Colitis Additional Impression: Abdominal hernia Condition: Stable Referrals: NANCY LÓPEZ M.D. (PCP) IBAN SAUNDERS MD May 23, 2024 03:01
[2024-05-23] MEDS ORDERED: ondanSETRON 4MG INJ IVP PRN (03:30)
[2024-05-23] MEDS ORDERED: hydrALAZine 20MG/ML VIAL IV PRN (03:30)
[2024-05-23] MEDS ORDERED: VANCOMYCIN PROTOCOL PER PHARMACY IV SCH (03:30)
[2024-05-23] MEDS ORDERED: acetaMINOPHEN 650 MG SUPPOSITORY RC PRN (03:30)
[2024-05-23] MEDS ORDERED: TEMAZepam 15 MG CAPSULE PO PRN (03:30)
[2024-05-23] MEDS ORDERED: acetaMINOPHEN 325 MG TAB PO PRN (03:30)
[2024-05-23] MEDS: VANCOMYCIN 1.25 GM/250 ML BAG 250 ML IV ONE (04:01)
[2024-05-23] MEDS: LACTATED RINGERS 1000ML 1,000 ML IV SCH (04:02)
[2024-05-23] MEDS: ZOSYN 3.375GM +NS 50ML IVPB ONE (05:25)
[2024-05-23] MEDS: INSULIN humuLIN R 100 UNIT/ML 3ML SQ SCH (07:30)
[2024-05-23] MEDS ORDERED: NOREPINEPHRIN 4MG/NS 250ML 250 ML IV SCH (07:30)
[2024-05-23] MEDS: PANTOPrazole 40 MG/VIAL IVP SCH (07:42)
[2024-05-23] MEDS: ceFEPime HCL 1 GM VIAL IVPB SCH (07:42)
--- NOTE | 2024-05-23 08:53 | HMCIMG ---
Exam Type: CT ABDOMEN AND PELVIS WITH ORAL AND IV CONTRAST Clinical Information: LARGE ABD MASS WITH WOUND Contrast: 100 cc's Isovue 370 IV, no complications or adverse reactions Technique: Routine helical scanning at 5mm collimation through the abdomen and pelvis was performed after oral contrast administration. The examination was done before and after IV contrast administration as well. Intermediate and 7 minute delayed post IV contrast administration images were performed, for adequate contrast distention of the urinary collecting systems, ureters and the urinary bladder. CT Dose Index (CTDI): 4.38 mGy Dose Length Product (DLP): 197.9 total mGy-cm Findings: Large ventral hernia containing multiple large and small bowel loops, without evidence of incarceration or strangulation. However, some extraluminal air is seen within the hernia sac. Unless there is an overlying open skin wound with collection into the peritoneum, this extraluminal air could indicate perforation. Proximal colitis is seen as well. Small bowel loops appear unremarkable otherwise. No evidence of nephro or ureterolithiasis is found. No hydronephrosis or ureteral dilatation is seen. The lung bases are clear. The stomach is unremarkable. It shows no wall thickening. No gross ulceration is seen. It is not overly distended. There are no surrounding inflammatory changes. No wall lesions are identified to suggest cancer. The spleen is enlarged. The liver is irregular in contour consistent with given history of cirrhosis. There are splenic hilar varices and varices of the gastroesophageal junction. There is recanalization of the umbilical vein which is very prominent, anterior, projecting within the large hernia noted above. There is significant ascites. These findings are consistent with portal venous hypertension. The pancreas shows normal anatomy. It is not fatty replaced. It shows no lesions. The pancreatic duct is not dilated. The gallbladder is surgically absent. There is associated pneumobilia. The adrenal glands are unremarkable. There is no enlargement. No lesions are noted. The appendix is unremarkable. It shows no evidence of inflammation. No appendicolith is seen. The urinary bladder is unremarkable. There is no wall thickening to suggest tumor or inflammation. There are no intraluminal calculi. There are no diverticula. There is no evidence of chronic bladder outlet obstruction. There is no evidence of urinary bladder distention to suggest urinary retention. The prostate is enlarged. The bony and vascular structures are unremarkable for the patient's age. IMPRESSION: Large ventral hernia containing multiple large and small bowel loops, without evidence of incarceration or strangulation. However, some extraluminal air is seen within the hernia sac. Unless there is an overlying open skin wound with collection into the peritoneum, this extraluminal air could indicate perforation. Findings consistent with cirrhosis and portal venous hypertension. Other findings as described above. Preliminary report with this information was sent by the on-call radiologist to ordering physicians time of exam. This study was performed using dose reduction techniques to include automated exposure control and/or adjustment of the mA and/or kV according to patient size to include automated exposure control and/or adjustment of the mA and/or kV according to patient size.
[2024-05-23] MEDS: ENOXAPARIN SODIUM 30 MG/0.3 ML SQ SCH (09:00)
--- NOTE | 2024-05-23 09:06 | NUR ---
LOVENOX DOSE HELD DUE TO OR SCHEDULED PROCEDURE
--- NOTE | 2024-05-23 09:15 | HP ---
[facility] HISTORY & PHYSICAL Date Patient Seen: May 23, 2024 Time of Visit: 09:06 Supervising Physician: Dr. Harry Joyce Primary Care Physician: Dr. Denisa Webb Outpatient Specialists: Dr. Bustamante Inpatient Consults: Dr. Henson PROBLEM LIST: Abdominal wound dehiscence Large ventral hernia without incarceration or strangulation Hypovolemia Portal venous hypertension Hyponatremia Hypokalemia Hyperglycemia in the setting of type 2 Diabetes Mellitus Acute cystitis Hx. DM, HTN, HLD, severe biliary duct stricture post stent, cholecystectomy, ventral hernia repair HPI: This is a 74-year-old male with past medical history of diabetes mellitus, hypertension, BPH, hyperlipidemia, and ventral hernia repair who came to the hospital with complaint of wound dehiscence on the abdominal hernia site. According to the patient, it had started two days ago. He has large abdominal protrusion from hernia. He never had wound that is leaking before but there is evidence of skin ulceration. He reported some pain to the left aspect of the hernia protrusion. He feels like he has been loosing weight though he has good appetite. Patient had a ventral hernia repair about one year ago in [place] with Dr. Bustamante. He denies fever, chills, constipation, or diarrhea. Past medical history Hypertension Hyperlipidemia Diabetes mellitus Hyperbilirubinemia secondary to severe biliary duct stricture Past surgical history ERCP with stenting on 06/02/2018 Cholecystectomy Ventral hernia repair SOCIAL HISTORY: No tobacco, ETOH, or illicit drug use Coded Allergies: No Known Drug Allergies (Unverified Allergy, Unknown, 06/02/17) REVIEW OF SYSTEMS: General: No Fever, No Chills, No Night Sweats, No Fatigue, No Malaise, No Appetite HEENT: No Head Aches, No Visual Changes, No Eye Pain, No Ear Pain, No Dysphasia, No Sinus Congestion, No Post Nasal Drip, No Sore Throat Pulmonary: No Dyspnea; No Cough, No Pleuritic Chest Pain Cardiovascular: No: Chest Pain, Palpitations, Orthopnea, Paroxysmal Noc. Dyspnea, Edema, Lt Headedness Gastrointestinal: No: Nausea, Vomiting,yes Abdominal Pain, no Diarrhea, Constipation, Melena, Hematochezia Genitourinary: No Dysuria, No Frequency, No Incontinence, No Hematuria, No Retention Musculoskeletal: No: other, neck pain, shoulder pain, arm pain, back pain, hand pain, leg pain, foot pain Skin: yes abdominal ulceration, yes wound with dehisce, No Urticaria, No Rash Neurological: No: Weakness, Numbness, Incoordination, Change in speech, Confusion, Seizures PHYSICAL EXAM: GENERAL: alert, weak, awake oriented x 3 HEENT: EOMI, Sclera non icteric, moist mucosa NECK: Supple, no JVD, trachea midline LUNGS: Clear breath sounds bilaterally. No wheezes HEART: Regular rate and rhythm. Normal S1 and S2, without murmurs ABD: Abdomen soft, nontender. Bowel sounds present EXT: No clubbing cyanosis or edema. Protrusion of the ventral hernia with some ulceration and dehisce liquid NEURO: Alert and oriented to person, follows commands Vital Signs (last 8hr) Date Time Temp Pulse Resp B/P (MAP) Pulse Ox O2 Delivery O2 Flow Rate FiO2 05/23/24 06:59 59 18 94/54 96 Room Air* 0 21 05/23/24 04:37 61 16 95/56 96 Room Air* 0 21 05/23/24 01:08 97.9 72 18 110/56 97 Room Air* 0 21 LABS: Hematology Labs: Test 05/23/24 00:07 Range/Units White Blood Count 6.1 4.8-10.8 K/uL Red Blood Count 3.49 L 4.50-6.20 MIL/uL Hemoglobin 11.0 L 14.0-18.0 g/dL Hematocrit 33.0 L 42-54 % Mean Corpuscular Volume 94.6 79-99 fL Mean Corpuscular Hemoglobin 31.5 27.0-33.0 pg Mean Corpuscular Hemoglobin Concent 33.3 32.0-36.0 g/dL Red Cell Distribution Width 14.7 11.0-15.5 % Platelet Count 202 130-400 K/uL Mean Platelet Volume 10.3 7.5-10.5 fL Immature Granulocyte % (Auto) 0.5 0-1 % Neutrophils (%) (Auto) 69.8 40.0-77.0 % Lymphocytes (%) (Auto) 18.2 L 21.0-51.0 % Monocytes (%) (Auto) 10.0 3.0-13.0 % Eosinophils (%) (Auto) 1.0 0.0-8.0 % Basophils (%) (Auto) 0.5 0.0-5.0 % Neutrophils # (Auto) 4.3 1.8-7.7 K/uL Lymphocytes # (Auto) 1.1 1.0-4.8 K/uL Monocytes # (Auto) 0.6 0.1-1.0 K/uL Eosinophils # (Auto) 0.06 0.00-0.70 K/uL Basophils # (Auto) 0.03 0.00-0.20 K/uL Absolute Immature Granulocyte (auto 0.03 0-1 K/uL Nucleated Red Blood Cells 0.0 0.0-0.19 % Chemistry Labs: Test 05/23/24 00:07 Range/Units Sodium Level 135 L 136-145 mmol/L Potassium Level 3.4 L 3.5-5.1 mmol/L Chloride Level 102 101-111 mmol/L Carbon Dioxide Level 26 21-32 mmol/L Blood Urea Nitrogen 20 H 7-18 mg/dL Creatinine 1.0 0.5-1.3 mg/dL Glomerular Filtration Rate Calc 78 >90 mL/min Random Glucose 134 H 70-105 mg/dL Lactic Acid Level 1.9 0.8-2.5 mmol/L Total Calcium 7.9 L 8.5-10.1 mg/dL Magnesium Level 2.00 1.80-2.40 mg/dL Total Creatine Kinase 81 # 21-232 U/L Procalcitonin 0.31 0.05-0.5 ng/mL DIAGNOSTICS / RADIOLOGY RESULTS: REASON: LARGE ABD MASS WITH WOUND ORDERING PHYSICIAN: IBAN SAUNDERS MD PROCEDURE: ABD PEL W - CT ABDOMEN/PELVIS W/CONTRAST Exam Type: CT ABDOMEN AND PELVIS WITH ORAL AND IV CONTRAST Clinical Information: LARGE ABD MASS WITH WOUND Contrast: 100 cc's Isovue 370 IV, no complications or adverse reactions Technique: Routine helical scanning at 5mm collimation through the abdomen and pelvis was performed after oral contrast administration. The examination was done before and after IV contrast administration as well. Intermediate and 7 minute delayed post IV contrast administration images were performed, for adequate contrast distention of the urinary collecting systems, ureters and the urinary bladder. CT Dose Index (CTDI): 4.38 mGy Dose Length Product (DLP): 197.9 total mGy-cm Findings: Large ventral hernia containing multiple large and small bowel loops, without evidence of incarceration or strangulation. However, some extraluminal air is seen within the hernia sac. Unless there is an overlying open skin wound with collection into the peritoneum, this extraluminal air could indicate perforation. Proximal colitis is seen as well. Small bowel loops appear unremarkable otherwise. No evidence of nephro or ureterolithiasis is found. No hydronephrosis or ureteral dilatation is seen. The lung bases are clear. The stomach is unremarkable. It shows no wall thickening. No gross ulceration is seen. It is not overly distended. There are no surrounding inflammatory changes. No wall lesions are identified to suggest cancer. The spleen is enlarged. The liver is irregular in contour consistent with given history of cirrhosis. There are splenic hilar varices and varices of the gastroesophageal junction. There is recanalization of the umbilical vein which is very prominent, anterior, projecting within the large hernia noted above. There is significant ascites. These findings are consistent with portal venous hypertension. The pancreas shows normal anatomy. It is not fatty replaced. It shows no lesions. The pancreatic duct is not dilated. The gallbladder is surgically absent. There is associated pneumobilia. The adrenal glands are unremarkable. There is no enlargement. No lesions are noted. The appendix is unremarkable. It shows no evidence of inflammation. No appendicolith is seen. The urinary bladder is unremarkable. There is no wall thickening to suggest tumor or inflammation. There are no intraluminal calculi. There are no diverticula. There is no evidence of chronic bladder outlet obstruction. There is no evidence of urinary bladder distention to suggest urinary retention. The prostate is enlarged. The bony and vascular structures are unremarkable for the patient's age. IMPRESSION: Large ventral hernia containing multiple large and small bowel loops, without evidence of incarceration or strangulation. However, some extraluminal air is seen within the hernia sac. Unless there is an overlying open skin wound with collection into the peritoneum, this extraluminal air could indicate perforation. Findings consistent with cirrhosis and portal venous hypertension. Other findings as described above. PLAN NEURO: Minimize central acting medications as possible. Maintain fall precautions, adequate lighting during the day PULMONARY: Supplemental 02 as needed. Maintain aspiration precautions at all times CARDIOVASCULAR: Follow hemodynamics. Vital signs per facility protocol IVF, keep MAP >65 GI & NUTRITION: Continue with nutritional support. Continue stool softeners and laxatives as needed. Consult to general surgery for evaluation CT abdomen done, peritoneal air likely from wound, doubt perforation. NPO till cleared by surgery KIDNEYS & ELECTROLYTES: Strict monitoring of intake, output and overall fluid balance. Avoid nephrotoxic medications to the extent possible. Medications to be dosed according to renal function. Monitor electrolytes and replace as needed ENDOCRINE: Maintain blood glucose between 100-180 at all times. Hypoglycemia protocol in place INFECTIOUS DISEASE: Trend temperature, WBC and procalcitonin level Follow cultures, deescalate antibiotics as soon as possible. Panculture if new onset fever ABX Cultures ONCOLOGY/HEMATOLOGY/COAGULATION: Monitor for s/s of bleeding Monitor hemoglobin, coagulation studies as needed SKIN: Pressure ulcer prevention per facility protocol Specialty mattress ORTHO/REHAB: Continue PT/OT Prophylaxis: Continue GI and DVT prophylaxis Code Status: Full Resuscitation Disposition: TBD Other: Total patient care time exceeds 35 minutes excluding all procedures. PRE[facility] May 23, 2024 09:15
[2024-05-23] MEDS: 0.9%NACL 1000ML 1,632 ML IV ONE (10:08)
[2024-05-23 10:24] LABS: INR 1.08 (0.85-1.15)
[2024-05-23] MEDS ORDERED: rocuRONium bROMide 10MG/1ML 5ML VL ONE ×2 (14:46→15:32)
[2024-05-23] MEDS ORDERED: LIDOCAINE PF 100MG/5ML (2%) SYRINGE 5ML ONE (14:46)
[2024-05-23] MEDS ORDERED: proPOFol 10 MG/ML 20ML VIAL IV ONE (14:46)
[2024-05-23] MEDS ORDERED: GLYCOPYRROLATE 0.2 MG/ML 5 ML VIAL ONE (16:13)
[2024-05-23] MEDS ORDERED: NEOSTIGMINE METHYLSULFATE 1MG/ML IV ONE (16:13)
[2024-05-23] MEDS ORDERED: ondanSETRON 4MG INJ ONE (16:14)
[2024-05-23] MEDS: VANCOMYCIN 500MG+NS 100ML 100 ML IV SCH (16:47)
[2024-05-23] MEDS: morPHINE 4 MG SYG IVP PRN (17:30)
--- NOTE | 2024-05-23 18:00 | NUR ---
ABD INCISION DRESSING SATURATED. DRESSING CHANGED.
[2024-05-24] VITALS: BP 106/58; PULSE 78; RESP 20; TEMP 97.6
[2024-05-24 04:00] VITALS: BP 111/66; PULSE 76; RESP 20; TEMP 98.2
[2024-05-24 05:04] LABS: HEMATOCRIT 32.2 % (42-54); MEAN CORPUSCULAR HEMOGLOBIN 31.7 pg (27.0-33.0); MEAN CORPUSCULAR HGB CONC 33.5 g/dL (32.0-36.0); MEAN CORPUSCULAR VOLUME 94.4 fL (79-99); RED BLOOD CELL COUNT(AUTO) 3.41 MIL/uL (4.50-6.20); RED CELL DISTRIBUTION WIDTH 14.9 % (11.0-15.5); WHITE BLOOD COUNT (AUTO) 9.8 K/uL (4.8-10.8)
[2024-05-24 05:13] LABS: MAGNESIUM 1.9 mg/dL (1.80-2.40); PHOSPHORUS 4.7 mg/dL (2.5-4.9); POTASSIUM 4.1 mmol/L (3.5-5.1)
[2024-05-24 08:00] VITALS: O2SAT 97
[2024-05-24 08:23] VITALS: BP 109/57; PULSE 74; RESP 18; TEMP 98.2
--- NOTE | 2024-05-24 11:54 | OP ---
DATE OF PROCEDURE: 05/23/2024 PREOPERATIVE DIAGNOSES: Incarcerated incisional hernia, 11 cm with ulcerations/incisional hernia. POSTOPERATIVE DIAGNOSES: Incarcerated incisional hernia, 11 cm with ulcerations/incisional hernia. PROCEDURE: Repair of incisional incarcerated hernia, 11 cm with 11 cm Ventrio mesh. ANESTHESIA: General. BLOOD LOSS: Less than 20 mL. A large amount of ascites was encountered as were the varices. DESCRIPTION OF PROCEDURE: The patient was taken to the operating room, endotracheally intubated. Antibiotics were given. She was prepped and draped in normal sterile fashion. Wide resection of the ulcerated lesion and skin was performed. Adhesions were taken down to reveal the fascia. Fascial sutures with 0 Prolene were taken with taking bites of the mesh and the defect was closed with interrupted fashion. A #7 flat BÁRBARA drain was placed over the mesh and miladis were used to close the skin. The patient tolerated the procedure. No specimens were sent, except for the skin. TID: [id number] RECEIPT: [id number]
[2024-05-24 11:55] VITALS: BP 109/53; PULSE 74; RESP 18; TEMP 98.5
--- NOTE | 2024-05-24 12:05 | CONS ---
HISTORY OF PRESENT ILLNESS: The patient is a 74-year-old male with a history of diabetes and hypertension, who complains of a large ventral hernia, which he has had for 2 years. He says he has had ulceration that began leaking and increased abdominal pain. The patient had hernia repair prior but we have no records of this. PAST MEDICAL HISTORY: As above. PAST SURGICAL HISTORY: He also has a history of biliary duct stricture with stent placement, cholecystectomy and hernia repair. ALLERGIES: THE PATIENT IS ALLERGIC TO DIPHENHYDRAMINE. PHYSICAL EXAMINATION: GENERAL: The patient is a thin male in no acute distress. He is awake, alert and oriented. VITAL SIGNS: He is afebrile. Vital signs are stable. CHEST: Clear. HEART: Regular rate and rhythm. ABDOMEN: He has a large nonreducible ventral hernia with loss of domain. There is a central ulceration with serous drainage. LABORATORY DATA: White count is 6, hematocrit of 33, platelets are 202. SMA-7 is remarkable for potassium of 3.4. UA is unremarkable except for 2-5 white cells and 2-5 red cells. DIAGNOSTIC DATA: CAT scan of the abdomen shows a large ventral hernia containing multiple large and small bowel loops. There is some extraluminal air seen in the hernia sac, proximal colitis is seen. The liver is irregular consistent with cirrhosis. ASSESSMENT AND PLAN: Incarcerated hernia with ulcerations. Plan is hernia repair. The patient is aware that he has a loss of domain and may require postoperative intubation. TID: [id number] RECEIPT: [id number]
--- NOTE | 2024-05-24 12:09 | PN ---
Status post incarcerated hernia repair with mesh. Patient tolerating p.o. pain controlled. Abdomen soft BÁRBARA with minimal output. Can DC patient to home no lifting greater than 10 pounds no driving follow-up 1 week. DC BÁRBARA prior to discharge. Rx written Vitals/Labs Vital Signs Date Time Temp Pulse Resp B/P (MAP) Pulse Ox O2 Delivery O2 Flow Rate FiO2 05/24/24 11:55 98.4 74 18 109/53 97 Room Air 05/24/24 04:00 3.0 05/23/24 19:10 21 Laboratory Tests 05/24/24 04:43 Medications Current Medications Iohexol 75 ml STK-MED ONCE IV; Start 05/23/24 at 01:06; Stop 05/23/24 at 01:11; Status DC Piperacillin Sod/ Tazobactam Sod 3.375 gm ONCE ONCE IVPB Last administered on 05/23/24at 05:25; Start 05/23/24 at 03:00; Stop 05/23/24 at 03:01; Status DC Lactated Ringer's 1,000 ml @ 100 mls/hr Q10H IV Last administered on 05/24/24at 08:54; Start 05/23/24 at 03:30; Stop 06/22/24 at 03:29 Vancomycin HCl 1 each AD IV; Start 05/23/24 at 03:30; Stop 06/06/24 at 03:29 Acetaminophen 650 mg Q6H PRN PO; Start 05/23/24 at 03:30; Stop 06/22/24 at 03:29 Acetaminophen 650 mg Q6H PRN RC; Start 05/23/24 at 03:30; Stop 06/22/24 at 03:29 Temazepam 15 mg HS PRN PO; Start 05/23/24 at 03:30; Stop 06/22/24 at 03:29 Ondansetron HCl 4 mg Q6H PRN IVP; Start 05/23/24 at 03:30; Stop 06/22/24 at 03:29 Hydralazine HCl 10 mg Q2H PRN IV; Start 05/23/24 at 03:30; Stop 06/22/24 at 03:29 Morphine Sulfate 4 mg Q4H PRN IVP Last administered on 05/23/24at 17:30; Start 05/23/24 at 03:30; Stop 05/30/24 at 03:29 Insulin Human Regular INSULIN SLIDING SCAL... ACHS SQ; Start 05/23/24 at 07:30; Stop 06/22/24 at 07:29 Cefepime HCl 1 gm Q12H IVPB Last administered on 05/24/24at 08:54; Start 05/23/24 at 08:30; Stop 06/02/24 at 08:29 Vancomycin HCl 250 ml @ 125 mls/hr ONCE ONCE IV Last administered on 05/23/24at 04:01; Start 05/23/24 at 04:00; Stop 05/23/24 at 05:59; Status DC Vancomycin HCl 100 ml @ 100 mls/hr Q12H IV Last administered on 05/24/24at 03:28; Start 05/23/24 at 16:00; Stop 06/02/24 at 15:59 Pantoprazole Sodium 40 mg BID IVP Last administered on 05/24/24at 08:54; Start 05/23/24 at 09:00; Stop 06/22/24 at 08:59 Norepinephrine 250 ml @ 20.4 mls/hr PROTOCOL IV; Start 05/23/24 at 07:30; Stop 06/22/24 at 07:29 Enoxaparin Sodium 30 mg DAILY SQ; Start 05/23/24 at 09:00; Stop 05/23/24 at 16:45; Status DC Sodium Chloride 1,632 ml @ 544 mls/hr ONCE ONCE IV Last administered on 05/23/24at 10:08; Start 05/23/24 at 09:30; Stop 05/23/24 at 12:29; Status DC Lidocaine HCl 100 mg STK-MED ONCE .ROUTE; Start 05/23/24 at 14:46; Stop 05/23/24 at 14:46; Status DC Propofol 200 mg STK-MED ONCE IV; Start 05/23/24 at 14:46; Stop 05/23/24 at 14:47; Status DC Rocuronium [place] 50 mg STK-MED ONCE .ROUTE; Start 05/23/24 at 14:46; Stop 05/23/24 at 14:47; Status DC Rocuronium [place] 50 mg STK-MED ONCE .ROUTE; Start 05/23/24 at 15:32; Stop 05/23/24 at 15:34; Status DC Glycopyrrolate 1 mg STK-MED ONCE .ROUTE; Start 05/23/24 at 16:13; Stop 05/23/24 at 16:14; Status DC Neostigmine Methylsulfate 10 mg STK-MED ONCE IV; Start 05/23/24 at 16:13; Stop 05/23/24 at 16:14; Status DC Ondansetron HCl 4 mg STK-MED ONCE .ROUTE; Start 05/23/24 at 16:14; Stop 05/23/24 at 16:14; Status DC PASQUALE RAMSEY MD May 24, 2024 12:09
[2024-05-24] MEDS ORDERED: AMOX1TAB16 PO (13:23)
--- NOTE | 2024-05-24 13:24 | DS ---
[facility] DISCHARGE SUMMARY Date Patient Seen: May 24, 2024 Time of Visit: 13:24 Supervising Physician: Dr. Joyce Primary Care Physician: Dr. Denisa Webb Outpatient Specialists: Dr. Bustamante Inpatient Consults: Dr. Henson PROBLEM LIST AT ADMISSION Abdominal wound dehiscence Large ventral hernia without incarceration or strangulation Hypovolemia Portal venous hypertension Hyponatremia Hypokalemia Hyperglycemia in the setting of type 2 Diabetes Mellitus Acute cystitis Hx. DM, HTN, HLD, severe biliary duct stricture post stent, cholecystectomy, ventral hernia repair PROBLEM LIST AT DISCHARGE Abdominal wound dehiscence- resolved Large ventral hernia without incarceration or strangulation S/P incarcerated incisional hernia repair with mesh with Dr. Henson on 05/23 Hypovolemia- resolved Portal venous hypertension- chronic Hyponatremia- resolved Hypokalemia- resolved Hyperglycemia in the setting of type 2 Diabetes Mellitus Acute cystitis- ruled out, UA not meeting criteria for culture Hx. DM, HTN, HLD, severe biliary duct stricture post stent, cholecystectomy, ventral hernia repair HOSPITAL COURSE: HPI This is a 74-year-old male with past medical history of diabetes mellitus, hypertension, BPH, hyperlipidemia, and ventral hernia repair who came to the hospital with complaint of wound dehiscence on the abdominal hernia site. According to the patient, it had started two days ago. He has large abdominal protrusion from hernia. He never had wound that is leaking before but there is evidence of skin ulceration. He reported some pain to the left aspect of the hernia protrusion. He feels like he has been loosing weight though he has good appetite. Patient had a ventral hernia repair about one year ago in [place] with Dr. Bustamante. He denies fever, chills, constipation, or diarrhea. Hospital Course Patient came to the hospital on 05/23/2024 with complaint of wound dehiscence in the hernia site, CT of the abdomen showed large ventral hernia containing multiple large and small bowel loops without evidence of incarceration or strangulation with some extraluminal air which is consistent with skin infection. Patient underwent an incarcerated incisional hernia repair with mesh on 05/23/2024 successfully. Postoperatively, patient is doing well, BÁRBARA drain 150 cc in 24 hour. He will be discharged home with BÁRBARA drain and to follow up with primary care to set up home health to help with outpatient care of the BÁRBARA drain until discontinued by surgery in 1 to 2 weeks. Teaching on how to care for this at home has been provided per nursing. Patient is stable to be discharged home with prescription of amoxicillin and Tylenol No. 3 for pain. Continue to use incentive spirometry. PROCEDURES: as mentioned above CT abdomen and pelvis REASON: LARGE ABD MASS WITH WOUND ORDERING PHYSICIAN: IBAN SAUNDERS MD PROCEDURE: ABD PEL W - CT ABDOMEN/PELVIS W/CONTRAST Exam Type: CT ABDOMEN AND PELVIS WITH ORAL AND IV CONTRAST Clinical Information: LARGE ABD MASS WITH WOUND Contrast: 100 cc's Isovue 370 IV, no complications or adverse reactions Technique: Routine helical scanning at 5mm collimation through the abdomen and pelvis was performed after oral contrast administration. The examination was done before and after IV contrast administration as well. Intermediate and 7 minute delayed post IV contrast administration images were performed, for adequate contrast distention of the urinary collecting systems, ureters and the urinary bladder. CT Dose Index (CTDI): 4.38 mGy Dose Length Product (DLP): 197.9 total mGy-cm Findings: Large ventral hernia containing multiple large and small bowel loops, without evidence of incarceration or strangulation. However, some extraluminal air is seen within the hernia sac. Unless there is an overlying open skin wound with collection into the peritoneum, this extraluminal air could indicate perforation. Proximal colitis is seen as well. Small bowel loops appear unremarkable otherwise. No evidence of nephro or ureterolithiasis is found. No hydronephrosis or ureteral dilatation is seen. The lung bases are clear. The stomach is unremarkable. It shows no wall thickening. No gross ulceration is seen. It is not overly distended. There are no surrounding inflammatory changes. No wall lesions are identified to suggest cancer. The spleen is enlarged. The liver is irregular in contour consistent with given history of cirrhosis. There are splenic hilar varices and varices of the gastroesophageal junction. There is recanalization of the umbilical vein which is very prominent, anterior, projecting within the large hernia noted above. There is significant ascites. These findings are consistent with portal venous hypertension. The pancreas shows normal anatomy. It is not fatty replaced. It shows no lesions. The pancreatic duct is not dilated. The gallbladder is surgically absent. There is associated pneumobilia. The adrenal glands are unremarkable. There is no enlargement. No lesions are noted. The appendix is unremarkable. It shows no evidence of inflammation. No appendicolith is seen. The urinary bladder is unremarkable. There is no wall thickening to suggest tumor or inflammation. There are no intraluminal calculi. There are no diverticula. There is no evidence of chronic bladder outlet obstruction. There is no evidence of urinary bladder distention to suggest urinary retention. The prostate is enlarged. The bony and vascular structures are unremarkable for the patient's age. IMPRESSION: Large ventral hernia containing multiple large and small bowel loops, without evidence of incarceration or strangulation. However, some extraluminal air is seen within the hernia sac. Unless there is an overlying open skin wound with collection into the peritoneum, this extraluminal air could indicate perforation. Findings consistent with cirrhosis and portal venous hypertension. DISCHARGE MEDICATIONS: see below Pt hemodynamically stable and afebrile at time of discharge. PCP notified of patients admission, hospital course and discharge. New Medications: Amoxicillin/Potassium Clav (Amox Tr-K Clv 875-125 mg Tab) 875 Mg-125 Mg Tablet 1 EACH PO Q12H, #20 TAB 0 Refills Continued Medications: Acetaminophen (Tylenol) 325 Mg Tablet 650 MG PO Q4HPRN, #50 TAB Aspirin (Aspirin EC) 81 Mg Tablet.dr 81 MG PO DAILY, TAB Finasteride (Finasteride) 5 Mg Tablet 5 MG PO NOON, TAB Lisinopril (Lisinopril) 20 Mg Tablet 12.5 MG PO AM, TAB Metformin HCl (Metformin HCl) 500 Mg Tablet 500 MG PO BID, TAB Pravastatin Sodium (Pravastatin Sodium) 10 Mg Tablet 10 MG PO HS, TAB Prochlorperazine Maleate (Compazine) 5 Mg Tab 5 MG PO TID, #15 TAB Tamsulosin HCl (Flomax) 0.4 Mg Cap.er.24h 0.4 MG PO NOON, CAPSULE. Discontinued Medications: Levofloxacin (Levaquin 750Mg Tabs) 750 Mg Tablet 500 MG PO DAILY, #7 TAB Metronidazole (Flagyl) 500 Mg Tablet 1 TAB PO TID for 10 Days, #30 TAB 0 Refills PHYSICAL EXAM: GENERAL: alert, weak, awake oriented x 3 HEENT: EOMI, Sclera non icteric, moist mucosa NECK: Supple, no JVD, trachea midline LUNGS: Clear breath sounds bilaterally. No wheezes HEART: Regular rate and rhythm. Normal S1 and S2, without murmurs ABD: Abdomen soft, nontender. Bowel sounds present EXT: No clubbing cyanosis or edema. Protrusion of the ventral hernia with some ulceration and dehisce liquid NEURO: Alert and oriented to person, follows commands FOLLOW-UP: Follow-up with PCP Dr. Denisa Johnson in 2-3 days to set up with to help with BÁRBARA drain care Follow up with Surgery Dr. Henson in 1-2 weeks RECOMMENDATIONS: See Discharge Instructions Wound care BÁRBARA drain care This case was seen and discussed with my supervising physician. More than 30 minutes spent on discharge process, including evaluation of the patient, dis cussion with nursing staff, medication reconciliation and follow-up appointments PREETHI GALVAN [facility] May 24, 2024 13:24
[2024-05-24] MEDS: AMOX/CLAV 875/125MG TAB PO SCH (14:36)
[2024-05-24 16:36] VITALS: BP 113/59; PULSE 79; RESP 18; TEMP 99.3
--- NOTE | 2024-05-24 18:00 | NUR ---
NOTE PT DISCHARGED AT THIS TIME, PT AND FAMILY EDUCATED ON DRESSING CHANGE AND BÁRBARA DRAIN CARE, PT EDUCATED ON FOLLOW UP AND NEW PRESCRIPTION MEDICATIONS PT IV DISCONTINUED REMOVED IN 1 PIECE, PT WHEELED DOWN TO PRIVATE VEHICHLE BY THIS ACCOUNT SOLUTIONS ANALYST
--- NOTE | 2024-05-24 18:00 | NUR ---
NOTE PT EDUCATED ON HOME HEALTH, EXPLAINED TO PT ON HOW TO RECEIVE REFERRAL FROM PCP
--- NOTE | 2024-05-24 18:55 | NUR ---
cm note spoke to primary nurse harman, and states order for cm to see for setup were cancelled and pt is to followup with pcp.
== END 2024-05-24 18:29 | disposition home or self-care (01) | DRG 908 ==
LOC: EDH 23:54 → EDHIP 05-23 02:55 → OBSVTOIN 05-23 02:55 → 2BH 05-23 10:48 → 3BH 05-23 18:40
PROVIDERS: ADMIT Internal Medicine; ATTEND Internal Medicine
PROC: 0WUF0JZ Supplement Abdominal Wall with Synthetic Substitute, Open Approach (ICD-10-PCS; principal; 2024-05-23 14:45)
DX: T81.31XA Disruption of external operation (surgical) wound, not elsewhere classified, initial encounter (principal); E87.1 Hypo-osmolality and hyponatremia; K43.0 Incisional hernia with obstruction, without gangrene; K76.6 Portal hypertension; N40.0 Benign prostatic hyperplasia without lower urinary tract symptoms; K52.9 Noninfective gastroenteritis and colitis, unspecified; I10 Essential (primary) hypertension; E86.1 Hypovolemia; E87.6 Hypokalemia; E78.00 Pure hypercholesterolemia, unspecified; E11.65 Type 2 diabetes mellitus with hyperglycemia; Z82.49 Family history of ischemic heart disease and other diseases of the circulatory system; Z79.899 Other long term (current) drug therapy; Y83.8 Other surgical procedures as the cause of abnormal reaction of the patient, or of later complication, without mention of misadventure at the time of the procedure; Y92.89 Other specified places as the place of occurrence of the external cause; K74.60 Unspecified cirrhosis of liver
CPT/HCPCS: 36415; 74177; 80048; 81001; 82550; 82948; 83605; 83735; 84100; 84145; 85025; 85027; 85610; 87040; 87070; 87076; 87086; 87186; A4344; A4606; G0378; J0692; J1815; J2003; J2270; J2405; J2470; J2543; J2704; J2710; J3370; J3490; Q9967; 3370; A4649; C1781

== ENCOUNTER → 2024-12-27 | Outpatient (CLI) | payer OTHER, MEDICARE ==
[~2024-12-27] MED LIST changes: +AMOX1TAB16 PO; -LEVO750T68 PO; -METR500T PO; +PRAV10TA37 PO; -PRAV10TA39 PO; -TAMS-1 PO; +TAMS-55 PO
[2024-12-27 11:20] LABS: IMMATURE GRANULOCYTE ABSOLUTE 0.00 K/uL (0-1); NUCLEATED RED BLOOD CELLS 0.0 % (0.0-0.19); PLATELET COUNT (AUTO) 126 K/uL (130-400); RED BLOOD CELL COUNT(AUTO) 3.49 MIL/uL (4.50-6.20); RED CELL DISTRIBUTION WIDTH 15.1 % (11.0-15.5); WHITE BLOOD COUNT (AUTO) 3.3 K/uL (4.8-10.8)
[2024-12-27 11:29] LABS: INR 1.04 (0.85-1.15)
[2024-12-27 11:33] LABS: ASPARTATE AMINOTRANSFERASE 51.0 U/L (10-37); CREATININE 0.8 mg/dL (0.5-1.3); GLOMERULAR FILTR. RATE CALC 92.0 mL/min (>90); GLUCOSE,RANDOM 122.0 mg/dL (70-105); SODIUM SERUM 138.0 mmol/L (136-145); TOTAL PROTEIN, SERUM 7.0 g/dL (6.0-8.3); UREA NITROGEN, BLOOD 27.0 mg/dL (7-18)
== END | disposition home or self-care (01) ==
LOC: LAB 10:28
PROVIDERS: ATTEND Internal Medicine Gastroenterology
DX: K74.60 Unspecified cirrhosis of liver (principal)
CPT/HCPCS: 36415; 80053; 82105; 85025; 85610

== ENCOUNTER → 2024-12-29 | Outpatient (CLI) | payer OTHER, MEDICARE ==
[~2024-12-29] MED LIST changes: +IOHEXOL-350 75 ML VIAL IV ONE
--- NOTE | 2024-12-29 13:46 | HMCIMG ---
EXAM: CT Abdomen with Intravenous Contrast CLINICAL HISTORY: 74-year-old male with unspecified cirrhosis of the liver. TECHNIQUE: Axial computed tomography images of the abdomen with intravenous contrast. Dose reduction technique was used including one or more of the following: automated exposure control, adjustment of mA and kV according to patient size, and/or iterative reconstruction. CONTRAST: With 75 mL Omnipaque 350. COMPARISON: CT ABD/PEL dated 05/23/2024, 01:09 AM. FINDINGS: LUNG BASES: A right lower lobe pulmonary nodule is seen measuring 9.3 mm in diameter on image 5 of 56. Follow-up with CT of the chest is recommended. LIVER: There is evidence of portal venous hypertension with extensive varices seen in the region of the marti hepatis. GALLBLADDER AND BILE DUCTS: Cholecystectomy clips are seen. Moderate pneumobilia is noted. PANCREAS: Unremarkable. SPLEEN: Splenomegaly. ADRENAL GLANDS: Unremarkable. KIDNEYS AND URETERS: Small bilateral renal cysts are seen. Symmetrical excretion of contrast in both kidneys is observed. No hydronephrosis or nephrolithiasis. STOMACH AND BOWEL: Gastric wall thickening suggesting [id number] gastritis is noted. Edema of loops of small bowel suggesting mild enteritis is noted. No obstruction. No CT evidence of colitis or acute diverticulitis. PERITONEUM: Internal reduction of an anterior abdominal hernia compared to the prior CT ABD/PEL dated 05/23/2024, 01:09 AM. No free fluid. No free air. LYMPH NODES: No lymphadenopathy. VASCULATURE: There is evidence of portal venous hypertension with prominence of periesophageal varices and varices in the epigastric region. ABDOMINAL WALL AND SOFT TISSUES: Internal reduction of an anterior abdominal hernia compared to the prior CT ABD/PEL dated 05/23/2024, 01:09 AM. BONES: Mild degenerative changes of the lumbar spine are present. Mild anterolisthesis of L3 on L4 is seen. IMPRESSION: 1. Gastric wall thickening suggesting [id number] gastritis. 2. Edema of loops of small bowel suggesting mild enteritis. 3. Evidence of portal venous hypertension with prominence of periesophageal varices, varices in the epigastric region, and splenomegaly. Extensive varices are seen in the region of the marti hepatis. 4. Right lower lobe pulmonary nodule measuring 9.3 mm. Follow-up with CT of the chest is recommended. 5. Internal reduction of an anterior abdominal hernia compared to the prior CT ABD/PEL dated 05/23/2024, 01:09 AM. /[place]
== END | disposition home or self-care (01) ==
LOC: RAH 08:38
PROVIDERS: ATTEND Internal Medicine Gastroenterology
DX: N28.1 Cyst of kidney, acquired (principal); K76.6 Portal hypertension; K31.89 Other diseases of stomach and duodenum; K74.60 Unspecified cirrhosis of liver; I85.10 Secondary esophageal varices without bleeding; R91.1 Solitary pulmonary nodule; I86.8 Varicose veins of other specified sites; R16.1 Splenomegaly, not elsewhere classified; R60.0 Localized edema; M47.816 Spondylosis without myelopathy or radiculopathy, lumbar region; M53.86 Other specified dorsopathies, lumbar region; Z90.49 Acquired absence of other specified parts of digestive tract
CPT/HCPCS: 74160; Q9967

== ENCOUNTER → 2025-01-20 | Outpatient (CLI) | payer OTHER, MEDICARE ==
[~2025-01-20] MED LIST changes: +IOHEXOL-350 50ML VIAL IV ONE; -IOHEXOL-350 75 ML VIAL IV ONE
--- NOTE | 2025-01-20 13:41 | HMCIMG ---
EXAM: CT Chest With and Without Intravenous Contrast. 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 TECHNIQUE: Axial computed tomography images of the chest with and without intravenous contrast. Dose reduction technique was used including one or more of the following: automated exposure control, adjustment of mA and kV according to patient size, and/or iterative reconstruction. CONTRAST: With and Without Intravenous Contrast. COMPARISON: CT Chest/abd/pelv dated 03/01/2021 15:28. FINDINGS: LUNGS: A stellate density in the right upper lobe is seen, measuring 16 mm in diameter, as seen on image number 10 of 62. Follow-up CT chest is recommended in 6 months. A right upper lobe pulmonary nodule is seen, measuring 8.7 mm in diameter. Follow-up CT chest is recommended in 12 months. A new right lower lobe pulmonary density is noted compared to the prior exam CT Chest/abd/pelv dated 03/01/2021 15:28. PLEURAL SPACES: No pleural effusion. No pneumothorax. HEART AND MEDIASTINUM: An ectatic aorta is seen. Some venous congestion is seen in the paraesophageal soft tissues, suggesting portal hypertension. LYMPH NODES: No lymphadenopathy. CHEST WALL AND UPPER ABDOMEN: Postsurgical changes of the anterior abdomen are seen. Mild degenerative changes of the thoracic spine are noted. BONES: Mild degenerative changes of the thoracic spine. No acute osseous abnormality. STOMACH AND BOWEL: Some edema of the marsh of the stomach and duodenum is seen, suggesting moderate gastritis and duodenitis. The appearance of gastritis is similar to the prior exam CT Chest/abd/pelv dated 03/01/2021 15:28. Some edema of the marsh of the transverse colon is seen, with a question of moderate colitis, which is new compared to the prior exam CT Chest/abd/pelv dated 03/01/2021 15:28. The colon contains a larger amount of stool. LIVER: A mild cirrhotic appearance of the liver is seen, with mild splenomegaly. IMPRESSION: 1. Stellate density in the right upper lobe measuring 16 mm, new from prior CT Chest/abd/pelv 03/01/2021 15:28. Follow-up CT chest in 6 months. 2. Right upper lobe pulmonary nodule measuring 8.7 mm. Follow-up CT chest in 12 months. 3. Moderate gastritis and duodenitis, similar to prior exam. 4. Moderate colitis, infectious versus inflammatory, new compared with prior exam. 5. Mild cirrhotic appearance of the liver and mild splenomegaly. /[place]
== END | disposition home or self-care (01) ==
LOC: RAH 09:49
PROVIDERS: ATTEND Internal Medicine
DX: R91.1 Solitary pulmonary nodule (principal); J00-J99 Diseases of the respiratory system; J98.4 Other disorders of lung; I77.819 Aortic ectasia, unspecified site; M47.814 Spondylosis without myelopathy or radiculopathy, thoracic region; R60.0 Localized edema; K29.70 Gastritis, unspecified, without bleeding; K74.60 Unspecified cirrhosis of liver; A09 Infectious gastroenteritis and colitis, unspecified; K29.80 Duodenitis without bleeding; Z98.890 Other specified postprocedural states
CPT/HCPCS: 71270; Q9967